=== PATIENT | male | born 1955 | race Caucasian/White ===

== ENCOUNTER 2022-08-19 16:51 | Inpatient (IN) | payer MEDICARE, OTHER ==
[~2022-08-19] VITALS: Ht 172.7 cm; Wt 73.5 kg
[~2022-08-19 16:51] MED LIST: HYDR-4279 PO; PIPERACILLIN SODIUM/TAZOBACTAM 3.375 G in IV DEXTROSE 5% 50 ML IV SCH
--- NOTE | 2022-08-19 17:58 | NUR ---
Pt c/o severe 02/17 right side THOMPSON w/dizziness. equal welding manager, dorsi and pediflex, smile symetrical, closed and open eyes good, legs and arms lifted and held w/o dips/drops.
[2022-08-19] MEDS ORDERED: ACETAMINOPHEN ES 500 MG TABLET PO ONE (18:15)
[2022-08-19 18:31] LABS: HEMATOCRIT 36.1 % (36.7-47.1); MEAN CORPUSCULAR HEMOGLOBIN 28.8 uug (23.8-33.4); MEAN CORPUSCULAR VOLUME 85.8 fL (73.0-96.2); PLATELET COUNT (AUTO) 424 K/uL (152-348)
[2022-08-19 18:41] LABS: CREATININE 1.8 mg/dL (0.6-1.3); POTASSIUM 4.8 mmol/L (3.5-5.1)
[2022-08-19 18:46] LABS: ALANINE AMINOTRANSFERASE 21 U/L (16-63); ALKALINE PHOSPHATASE 137 U/L (50-136); ASPARTATE AMINOTRANSFERASE 11 U/L (15-37); BILIRUBIN,DIRECT < 0.1 mg/dL (0.0-0.2); BILIRUBIN,TOTAL 0.3 mg/dL (0.2-1.0); TOTAL PROTEIN, SERUM 8.1 g/dL (6.4-8.2)
[2022-08-19] MEDS ORDERED: THIAMINE HCL 100 MG TABLET ONE (18:56)
[2022-08-19] MEDS ORDERED: PIPERACILLIN SODIUM/TAZOBACTAM 3.375 G in IV DEXTROSE 5% 50 ML IV ONE (19:00)
[2022-08-19] MEDS ORDERED: VANCOMYCIN IV 1,000 MG in IV DEXTROSE 5% 250 ML IV ONE (19:00)
--- NOTE | 2022-08-19 19:05 | NUR ---
Endorsed patient from [facility].
[2022-08-19] MEDS ORDERED: ACETAMINOPHEN ES 500 MG TABLET ONE (19:40)
[2022-08-19] MEDS ORDERED: PIPERACILLIN/TAZOBACTAM/D5W 50 ML IV ONE (19:40)
[2022-08-19] MEDS ORDERED: VANCOMYCIN IV 200 ML ONE ×2 (19:40→20:34)
--- NOTE | 2022-08-19 20:49 | NUR ---
Patient will be going to room 317
[2022-08-19] MEDS ORDERED: REMEDY ESSENTIAL ZINC PASTE 113 GM TP PRN (21:15)
[2022-08-19] MEDS ORDERED: IV NS 1000 ML 1,000 ML IV PRN (21:15)
[2022-08-19] MEDS ORDERED: INSULIN REGULAR, HUMAN 300 UNITS/3 ML VIAL SQ PRN (21:15)
[2022-08-19] MEDS ORDERED: MAGNESIUM HYDROXIDE 30 ML LIQUID UDC PO PRN (21:15)
[2022-08-19] MEDS ORDERED: ONDANSETRON 4 MG/2 ML VIAL IV PRN (21:15)
[2022-08-19] MEDS ORDERED: ACETAMINOPHEN 325 MG TABLET PO PRN (21:15)
[2022-08-19] MEDS ORDERED: DEXTROSE 50% 50 ML DISP.SYRIN IV PRN (21:15)
[2022-08-19] MEDS ORDERED: HYDROCODONE/APAP 5-325MG TABLET PO PRN (21:30)
[2022-08-19] MEDS ORDERED: MORPHINE SULFATE 2 MG/1 ML DISP.SYRIN IV PRN (21:30)
--- NOTE | 2022-08-19 22:25 | NUR ---
Gave report to Victor M RIZO.
--- NOTE | 2022-08-19 22:45 | NUR ---
Pt. admitted to TELE. Belongings list completes. Patient was transferred via gurney and RN Victor M made aware of patient's arrival.
--- NOTE | 2022-08-19 23:00 | NUR ---
pt admitted in stable condition. patient is a/o x4 and able to make needs known. pt is ambulatory. all needs met and attended. call light in reach will continue to monitor.
[2022-08-20] VITALS: BP 167/66
[2022-08-20] MEDS ORDERED: PIPERACILLIN SODIUM/TAZOBACTAM 3.375 G in IV DEXTROSE 5% 50 ML IV SCH ×2
[2022-08-20 04:00] VITALS: BP 168/83
[2022-08-20] MEDS ORDERED: PIPERACILLIN SODIUM/TAZOBACTAM 3.375 G in IV DEXTROSE 5% 100 ML IV SCH ×2 (06:00→16:00)
[2022-08-20] MEDS: BLOOD SUGAR DIAGNOSTIC 1 EACH STRIP VI SCH ×2 (06:45→12:10)
[2022-08-20 06:56] LABS: MEAN CORPUSCULAR HEMOGLOBIN 28.5 uug (23.8-33.4); MEAN CORPUSCULAR VOLUME 85.3 fL (73.0-96.2); PLATELET COUNT (AUTO) 373 K/uL (152-348)
[2022-08-20 07:17] LABS: CREATININE 1.9 mg/dL (0.6-1.3)
--- NOTE | 2022-08-20 07:30 | NUR ---
Awake, alert, oriented x 4. Denies headache. IVF infusing well.
[2022-08-20] MEDS: INSULIN REGULAR, HUMAN 300 UNIT/3 ML VIAL SQ PRN ×2 (08:32→12:11)
[2022-08-20 10:19] LABS: THYROID STIMULATING HORMONE 0.602 mIU/mL (0.358-3.740)
[2022-08-20] MEDS ORDERED: AMOX-430 PO (11:45)
[2022-08-20] MEDS ORDERED: METH4TAB3 PO (11:45)
[2022-08-20 11:50] VITALS: BP 181/73
--- NOTE | 2022-08-20 12:37 | NUR ---
BP 181/73, reports of headache. Swink po given as ordered.
[2022-08-20] MEDS ORDERED: CLONIDINE HCL 0.1 MG TABLET PO PRN (13:45)
--- NOTE | 2022-08-20 13:50 | NUR ---
Patient sleeping, easily aroused. Headache relieved. BP rechecked 190/89. Hospitalist informed with order. Clonidine po given.
[2022-08-20 14:57] VITALS: BP 156/73
--- NOTE | 2022-08-20 15:00 | NUR ---
Latest BP 156/73, hr 62. Patient feeling better, desires to go home. With DC order to home, spoke with daughter Bia, grand daughter will pickle cutter
--- NOTE | 2022-08-20 15:30 | NUR ---
Saline removed. DC instruction given to patient and grand daughter, verbalized understanding. Went home per wheelchair in fair condition, not in distress, afebrile.
== END 2022-08-20 15:30 | disposition home or self-care (01) | DRG 102 ==
LOC: ER 16:51 → TELE3 22:40 → MEDSURG3 08-20 07:55
PROVIDERS: ADMIT Internal Medicine; ATTEND Internal Medicine
DX: R51.9 Headache, unspecified (principal); N17.0 Acute kidney failure with tubular necrosis; J01.80 Other acute sinusitis; D64.9 Anemia, unspecified; D72.829 Elevated white blood cell count, unspecified; E11.65 Type 2 diabetes mellitus with hyperglycemia; Z20.822 Contact with and (suspected) exposure to COVID-19; I12.9 Hypertensive chronic kidney disease with stage 1 through stage 4 chronic kidney disease, or unspecified chronic kidney disease; N18.9 Chronic kidney disease, unspecified
CPT/HCPCS: 36415; 70450; 71045; 83735; 84100; 84443; 85025; 85651; 93005; A4663; A9150; G0378; J1815; J2543; J3370; J7040

== ENCOUNTER 2024-08-17 12:03 | Inpatient (IN) | payer MEDICARE, OTHER ==
[~2024-08-17] VITALS: Ht 172.7 cm; Wt 73.5 kg
[~2024-08-17 12:03] MED LIST changes: +AMOX-430 PO; +METH4TAB3 PO; -PIPERACILLIN SODIUM/TAZOBACTAM 3.375 G in IV DEXTROSE 5% 50 ML IV SCH
[2024-08-17] MEDS ORDERED: ALFU10TA10 PO (12:38)
[2024-08-17] MEDS ORDERED: FINA5TAB11 PO (12:38)
[2024-08-17] MEDS ORDERED: ASPI81TA31 PO (12:38)
[2024-08-17] MEDS ORDERED: SACU1TAB PO (12:38)
[2024-08-17] MEDS ORDERED: METO-356 PO (12:38)
[2024-08-17] MEDS ORDERED: FURO40TA5 PO (12:38)
[2024-08-17] MEDS ORDERED: SILD100T PO (12:38)
[2024-08-17] MEDS ORDERED: EMPA10TA PO (12:38)
[2024-08-17] MEDS ORDERED: GABA300C PO (12:38)
[2024-08-17] MEDS ORDERED: SITA100T PO (12:38)
[2024-08-17] MEDS ORDERED: LINA145C PO (12:38)
[2024-08-17] MEDS ORDERED: APIX5TAB4 PO (12:38)
[2024-08-17] MEDS ORDERED: ATOR80TA PO (12:38)
[2024-08-17] MEDS ORDERED: NATE60TA4 PO (12:38)
[2024-08-17 13:00] LABS: BASOPHILS # (AUTO) 0.1 K/UL (0.0-0.2); BASOPHILS % (AUTO) 1.2 % (0.0-2.0); EOSINOPHILS # (AUTO) 0.5 K/uL (0.0-0.7); EOSINOPHILS % (AUTO) 5.1 % (0.0-7.0); HEMATOCRIT 38.3 % (36.7-47.1); HEMOGLOBIN 12.9 g/dL (12.5-16.3); LYMPHOCYTES % (AUTO) 19.2 % (20.5-51.5); MEAN CORPUSCULAR HGB CONC 34 g/dL (32.5-36.3); MONOCYTES # (AUTO) 0.8 K/uL (0.1-1.30); MONOCYTES % (AUTO) 7.3 % (0.0-11.0); NEUTROPHILS % (AUTO) 67.2 % (38.5-71.5); PLATELET COUNT (AUTO) 171 K/uL (152-348); RED BLOOD CELL COUNT(AUTO) 4.46 MIL/uL (4.06-5.63); RED CELL DISTRIBUTION WIDTH 14.8 % (12.1-16.2); WHITE BLOOD COUNT (AUTO) 10.4 K/uL (3.6-10.2)
[2024-08-17 13:04] LABS: DIFFERENTIAL COMMENT 1
[2024-08-17 13:13] LABS: CALCIUM 9.1 mg/dL (8.5-10.1); CARBON DIOXIDE 25 mmol/L (21-32); CHLORIDE 104 mmol/L (98-107); CREATININE 1.8 mg/dL (0.6-1.3); GLUCOSE 199 mg/dL (74-106); POTASSIUM 4.7 mmol/L (3.5-5.1); SODIUM SERUM 140 mmol/L (136-145); UREA NITROGEN, BLOOD 29 mg/dL (7-18)
[2024-08-17 13:25] LABS: ALANINE AMINOTRANSFERASE 18 U/L (16-63); ALBUMIN 3.7 g/dL (3.4-5.0); ALKALINE PHOSPHATASE 100 U/L (50-136); ASPARTATE AMINOTRANSFERASE 12 U/L (15-37); BILIRUBIN,DIRECT 0.1 mg/dL (0.0-0.2); BILIRUBIN,TOTAL 0.5 mg/dL (0.2-1.0); NT-PRO BNP 4996 pg/mL (0-125); TOTAL PROTEIN, SERUM 7.4 g/dL (6.4-8.2)
[2024-08-17] MEDS ORDERED: FUROSEMIDE 40 MG/4 ML VIAL ONE (14:49)
[2024-08-17] MEDS: FUROSEMIDE 40 MG/4 ML VIAL IV ONE (14:54)
[2024-08-17 17:13] VITALS: BP 115/74; TEMP 98; O2SAT 95
[2024-08-17] MEDS: APIXABAN 2.5 MG TABLET PO SCH (18:25)
[2024-08-17 19:30] VITALS: BP 124/80; TEMP 98.5; O2SAT 100
[2024-08-17] MEDS ORDERED: HYDROCODONE/APAP 5-325MG TABLET PO PRN (20:00)
[2024-08-17] MEDS ORDERED: ACETAMINOPHEN 325 MG TABLET PO PRN (20:00)
[2024-08-17] MEDS ORDERED: ZOLPIDEM 5 MG TABLET PO PRN (20:00)
[2024-08-17] MEDS ORDERED: ONDANSETRON 4 MG/2 ML VIAL IV PRN (20:00)
[2024-08-17] MEDS ORDERED: ALBUTEROL SULFATE 2.5 MG/3 ML NEBU NEB PRN (20:15)
[2024-08-17] MEDS: ALFUZOSIN HCL 10 MG TAB.SR.24H PO SCH (20:32)
[2024-08-17] MEDS: FUROSEMIDE 20 MG/2 ML VIAL IV SCH (20:33)
[2024-08-17] MEDS: DOCUSATE SODIUM 250 MG CAPSULE PO SCH (20:33)
[2024-08-17] MEDS: ATORVASTATIN 40 MG TABLET PO SCH (20:33)
[2024-08-17] MEDS ORDERED: Medication Not On Formulary EA (Atorvastatin Calcium (Lipitor) 80 MG) PO SCH (21:00)
[2024-08-18] VITALS (7 sets, daily range): BP systolic 99–124; BP diastolic 59–71; TEMP 97.4–98.1; O2SAT 96–100
[2024-08-18] MEDS ORDERED: Medication Not On Formulary EA (Linaclotide (Linzess) 145 MCG) PO SCH (06:00)
[2024-08-18 06:23] LABS: BASOPHILS # (AUTO) 0.1 K/UL (0.0-0.2); BASOPHILS % (AUTO) 0.9 % (0.0-2.0); EOSINOPHILS # (AUTO) 0.7 K/uL (0.0-0.7); EOSINOPHILS % (AUTO) 6.2 % (0.0-7.0); HEMATOCRIT 34.2 % (36.7-47.1); HEMOGLOBIN 11.6 g/dL (12.5-16.3); LYMPHOCYTES # (AUTO) 2.3 K/uL (0.8-4.8); LYMPHOCYTES % (AUTO) 21.1 % (20.5-51.5); MEAN CORPUSCULAR HGB CONC 34 g/dL (32.5-36.3); MEAN CORPUSCULAR VOLUME 85.2 fL (73.0-96.2); MONOCYTES # (AUTO) 0.8 K/uL (0.1-1.30); MONOCYTES % (AUTO) 7.4 % (0.0-11.0); NEUTROPHILS # (AUTO) 7.1 K/uL (1.8-8.9); NEUTROPHILS % (AUTO) 64.4 % (38.5-71.5); PLATELET COUNT (AUTO) 148 K/uL (152-348); RED BLOOD CELL COUNT(AUTO) 4.01 MIL/uL (4.06-5.63); WHITE BLOOD COUNT (AUTO) 11.1 K/uL (3.6-10.2)
[2024-08-18] MEDS: PANTOPRAZOLE SODIUM 40 MG TABLET.DR PO SCH (06:42)
[2024-08-18 06:54] LABS: ALBUMIN 3.1 g/dL (3.4-5.0); BILIRUBIN,TOTAL 0.4 mg/dL (0.2-1.0); CALCIUM 8.5 mg/dL (8.5-10.1); CREATININE 1.7 mg/dL (0.6-1.3); MAGNESIUM 1.9 mg/dL (1.8-2.4); PHOSPHOROUS 4.7 mg/dL (2.5-4.9); POTASSIUM 3.9 mmol/L (3.5-5.1); TOTAL PROTEIN, SERUM 6.3 g/dL (6.4-8.2)
[2024-08-18 06:55] LABS: DIFFERENTIAL COMMENT 1
[2024-08-18 07:44] LABS: THYROID STIMULATING HORMONE 1.426 mIU/mL (0.358-3.740)
[2024-08-18] MEDS: GABAPENTIN 300 MG CAPSULE PO SCH (08:26)
[2024-08-18] MEDS: ASPIRIN 81 MG TAB.CHEW PO SCH (08:26)
[2024-08-18] MEDS: FINASTERIDE 5 MG TABLET PO SCH (08:26)
[2024-08-18] MEDS: EMPAGLIFLOZIN 10 MG TABLET PO SCH (08:27)
[2024-08-18] MEDS: METOPROLOL SUCCINATE XL 25 MG TAB.SR.24H PO SCH (08:28)
[2024-08-18] MEDS: NATEGLINIDE 60 MG TABLET PO SCH (08:28)
[2024-08-18] MEDS ORDERED: Medication Not On Formulary EA (Empagliflozin (Jardiance) 10 MG) PO SCH (09:00)
[2024-08-18] MEDS ORDERED: DEXTROSE 50% 50 ML DISP.SYRIN IV PRN ×2 (13:15→20:45)
[2024-08-18] MEDS: levoFLOXacin 500 MG TABLET PO SCH (15:59)
[2024-08-18] MEDS: BLOOD SUGAR DIAGNOSTIC 1 EACH STRIP VI SCH (16:58)
[2024-08-18] MEDS: INSULIN REGULAR, HUMAN 1000 UNIT/10 ML VIAL SQ PRN (17:00)
[2024-08-18] MEDS: DOCUSATE SODIUM 100 MG CAPSULE PO SCH (20:39)
[2024-08-18] MEDS ORDERED: INSULIN REGULAR, HUMAN 1000 UNIT/10 ML VIAL SQ PRN (20:45)
[2024-08-18] MEDS ORDERED: BLOOD SUGAR DIAGNOSTIC 1 EACH STRIP VI SCH (21:00)
[2024-08-19 00:20] VITALS: BP 105/57; TEMP 97.9; O2SAT 96
[2024-08-19 03:55] VITALS: O2SAT 98
[2024-08-19 04:20] VITALS: BP 107/57; TEMP 98.5; O2SAT 98
[2024-08-19] MEDS: levoFLOXacin 250 MG TABLET PO SCH (06:15)
[2024-08-19 07:10] LABS: BASOPHILS # (AUTO) 0.1 K/UL (0.0-0.2); EOSINOPHILS # (AUTO) 0.6 K/uL (0.0-0.7); EOSINOPHILS % (AUTO) 6.1 % (0.0-7.0); HEMATOCRIT 35.1 % (36.7-47.1); LYMPHOCYTES % (AUTO) 20.5 % (20.5-51.5); MEAN CORPUSCULAR HEMOGLOBIN 29.3 uug (23.8-33.4); MEAN CORPUSCULAR HGB CONC 34 g/dL (32.5-36.3); MEAN CORPUSCULAR VOLUME 85.7 fL (73.0-96.2); MONOCYTES # (AUTO) 0.7 K/uL (0.1-1.30); MONOCYTES % (AUTO) 7.3 % (0.0-11.0); NEUTROPHILS # (AUTO) 6.2 K/uL (1.8-8.9); NEUTROPHILS % (AUTO) 65.1 % (38.5-71.5); PLATELET COUNT (AUTO) 149 K/uL (152-348); RED CELL DISTRIBUTION WIDTH 14.4 % (12.1-16.2); WHITE BLOOD COUNT (AUTO) 9.5 K/uL (3.6-10.2)
[2024-08-19 07:29] LABS: DIFFERENTIAL COMMENT 1
[2024-08-19 07:34] LABS: CALCIUM 8.6 mg/dL (8.5-10.1); CREATININE 1.9 mg/dL (0.6-1.3); PHOSPHOROUS 4.9 mg/dL (2.5-4.9); POTASSIUM 4.1 mmol/L (3.5-5.1)
[2024-08-19 07:42] VITALS: BP 132/46; TEMP 97.7; O2SAT 97
[2024-08-19 11:46] VITALS: BP 120/66; TEMP 97.9; O2SAT 97
[2024-08-19] MEDS ORDERED: PANT40TA49 PO (13:00)
[2024-08-19] MEDS ORDERED: LEVO250T59 PO (13:00)
[2024-08-19] MEDS ORDERED: ATOR40TA PO (13:00)
[2024-08-19] MEDS ORDERED: ALFU10TA10 PO (13:00)
[2024-08-19] MEDS ORDERED: APIX2.5T PO (13:00)
== END 2024-08-19 14:35 | disposition home health service (06) | DRG 291 ==
LOC: ER 12:03 → TELE3 15:54
PROVIDERS: ADMIT Internal Medicine; ATTEND Internal Medicine
DX: I13.0 Hypertensive heart and chronic kidney disease with heart failure and stage 1 through stage 4 chronic kidney disease, or unspecified chronic kidney disease (principal); I50.23 Acute on chronic systolic (congestive) heart failure; N17.0 Acute kidney failure with tubular necrosis; J18.9 Pneumonia, unspecified organism; J44.0 Chronic obstructive pulmonary disease with (acute) lower respiratory infection; D50.9 Iron deficiency anemia, unspecified; N18.9 Chronic kidney disease, unspecified; I42.9 Cardiomyopathy, unspecified; I27.20 Pulmonary hypertension, unspecified; N40.0 Benign prostatic hyperplasia without lower urinary tract symptoms; E78.5 Hyperlipidemia, unspecified; G47.30 Sleep apnea, unspecified; G43.909 Migraine, unspecified, not intractable, without status migrainosus; F17.210 Nicotine dependence, cigarettes, uncomplicated; Z79.82 Long term (current) use of aspirin; Z79.899 Other long term (current) drug therapy; I08.1 Rheumatic disorders of both mitral and tricuspid valves; I25.10 Atherosclerotic heart disease of native coronary artery without angina pectoris; Z79.84 Long term (current) use of oral hypoglycemic drugs; E11.65 Type 2 diabetes mellitus with hyperglycemia; E11.22 Type 2 diabetes mellitus with diabetic chronic kidney disease; Z79.01 Long term (current) use of anticoagulants; I45.9 Conduction disorder, unspecified; D72.829 Elevated white blood cell count, unspecified; J20.9 Acute bronchitis, unspecified
CPT/HCPCS: 36415; 71045; 83550; 83605; 83735; 84100; 84153; 84443; 84484; 85025; 85730; 87040; 93307; A4606; A4663; G0378; J1815; J1940; J8499

== ENCOUNTER 2025-04-22 14:59 | Emergency (ER) | payer MEDICARE, OTHER ==
[~2025-04-22] VITALS: Ht 172.7 cm; Wt 74.8 kg
[~2025-04-22 14:59] MED LIST changes: +ALFU10TA10 PO; -AMOX-430 PO; +APIX2.5T PO; +ASPI81TA31 PO; +ATOR40TA PO; +EMPA10TA PO; +FINA5TAB11 PO; +FURO40TA5 PO; +GABA300C PO; -HYDR-4279 PO; +LEVO250T59 PO; +LINA145C PO; -METH4TAB3 PO; +METO-356 PO; +NATE60TA4 PO; +PANT40TA49 PO; +SACU1TAB PO; +SILD100T PO; +SITA100T PO
[2025-04-22 15:48] VITALS: BP 162/98; O2SAT 97
== END 2025-04-22 16:23 | disposition left against medical advice (07) ==
LOC: ER 14:59
DX: Z53.21 Procedure and treatment not carried out due to patient leaving prior to being seen by health care provider (principal)